=== PATIENT | female | born 1965 | race Caucasian/White ===

== ENCOUNTER 2018-06-10 14:17 | Day surgery (SDC) | payer OTHER ==
[~2018-06-10] VITALS: Ht 167.6 cm; Wt 72.2 kg
[~2018-06-10 14:17] MED LIST: ACET120S; ACET325 PO; ALBU3IS INH; ALBU90OI INH; ASPI325 PO; ASPI325EC PO; Ativan1 MG SL; BENZ100A PO; BUTALB-ACETAMI1 EACH PO; CYCL10; Culturelle1 CAP PO; DIVA250EC PO; DIVA500EC PO; FIBER PILL PO; GABA300 PO; HYDACE5 PO; HYDR1TAB94 PO; IBUP800 PO; IMITREX; Inderal60 MG PO; METPRE4DP PO; MIGRAINE; MORP15ER; MS Contin15 MG PO; MULVITMIND PO; MULVITMINF PO; Maxalt5 MG; Maxalt5 MG PO; NAPR220 PO; Norco 10-325 T1 EACH PO; Norco 5-325 Ta1 EACH PO; PANT40 PO; PROP10 PO; Prednisone20 MG PO; Protonix40 MG PO; RXTRAM50 PO; Restoril30 MG PO; SERT100 PO; SERT25 PO; SERT50 PO; SUMA20NI; SUMA25 PO; Synthroid112 MCG; TEMA15 PO; TRAM50 PO; TRAZ50 PO; VITAMIN; Ventolin Soln3 ML INH; ZOLP10; ZOLP5 PO
[2018-06-10] MEDS ORDERED: BUPRENORPHINE1 EAC1 (15:09)
== END 2018-06-10 16:12 | disposition home or self-care (01) ==
LOC: ORSCSDS 14:17
PROVIDERS: Surgery
PROC: 0DJD8ZZ Inspection of Lower Intestinal Tract, Via Natural or Artificial Opening Endoscopic (ICD-10-PCS; principal; 2018-06-10 15:30)
DX: D50.9 Iron deficiency anemia, unspecified (principal); K64.4 Residual hemorrhoidal skin tags; J44.9 Chronic obstructive pulmonary disease, unspecified; E03.9 Hypothyroidism, unspecified; F41.8 Other specified anxiety disorders; K21.9 Gastro-esophageal reflux disease without esophagitis; Z98.84 Bariatric surgery status; Z86.73 Personal history of transient ischemic attack (TIA), and cerebral infarction without residual deficits; F17.210 Nicotine dependence, cigarettes, uncomplicated; Z79.899 Other long term (current) drug therapy
CPT/HCPCS: J7120

== ENCOUNTER 2018-09-23 11:58 | Day surgery (SDC) | payer OTHER ==
[~2018-09-23] VITALS: Ht 167.6 cm; Wt 75.3 kg
[~2018-09-23 11:58] MED LIST changes: +Albuterol S5 MG/1 ML INH; +B Complex #11 EACH PO; +BUPRENORPHINE1 EAC1; +DIVA500ER PO; +DOCU100 PO; +Dyazide 37.5-21 EACH PO; +Ferrous Sulfat325 M2 PO; +Imitrex100 MG PO; +MULTI VITAMIN1 EACH PO; +Nortriptyline H50 MG PO; +PYRI100 PO; +SUBOXONE 8 MG-1 EACH SL; +SYNTHROID112 MCG PO
[2018-09-23] MEDS ORDERED: AJOVY225 MG/1.5 (13:05)
== END 2018-09-23 16:42 | disposition home or self-care (01) ==
LOC: ORSCSDS 11:58
PROVIDERS: Orthopaedic Surgery
PROC: 0RBJ4ZZ Excision of Right Shoulder Joint, Percutaneous Endoscopic Approach (ICD-10-PCS; principal; 2018-09-23 12:35)
PROC: 0LQ14ZZ Repair Right Shoulder Tendon, Percutaneous Endoscopic Approach (ICD-10-PCS; principal; 2018-09-23 12:35)
PROC: 0KC50ZZ Extirpation of Matter from Right Shoulder Muscle, Open Approach (ICD-10-PCS; principal; 2018-09-23 12:35)
PROC: 0RNJ4ZZ Release Right Shoulder Joint, Percutaneous Endoscopic Approach (ICD-10-PCS; principal; 2018-09-23 12:35)
DX: M75.111 Incomplete rotator cuff tear or rupture of right shoulder, not specified as traumatic (principal); M75.41 Impingement syndrome of right shoulder; M75.21 Bicipital tendinitis, right shoulder; M79.5 Residual foreign body in soft tissue; J44.9 Chronic obstructive pulmonary disease, unspecified; Z87.891 Personal history of nicotine dependence; E03.9 Hypothyroidism, unspecified; K21.9 Gastro-esophageal reflux disease without esophagitis; Z86.73 Personal history of transient ischemic attack (TIA), and cerebral infarction without residual deficits; Z79.899 Other long term (current) drug therapy
CPT/HCPCS: C1713; J0171; J0690; J1100; J2250; J2370; J2405; J2704; J2710; J3010; J7120

== ENCOUNTER → 2019-05-25 | Outpatient (CLI) | payer OTHER ==
[~2019-05-25] MED LIST changes: +AJOVY225 MG/1.5
[2019-05-26 14:58] LABS: Stool Occult Bld Immuno 1 Negative (NEGATIVE)
== END | disposition home or self-care (01) ==
LOC: LAB 17:18 → LAB SHORT 17:18
PROVIDERS: Family Medicine
DX: Z12.11 Encounter for screening for malignant neoplasm of colon (principal)
CPT/HCPCS: G0328